=== PATIENT | female | born 1960 | race Caucasian/White ===

== ENCOUNTER 2019-05-08 12:43 | Emergency (ER) | payer OTHER ==
[2019-05-08 13:33] VITALS: BP 128/71; PULSE 63; RESP 18; TEMP 98.2
--- NOTE | 2019-05-08 14:10 | ED ---
General Adult HPI - General Chief complaint: Extremity Injury, Lower Stated complaint: foot pain Time Seen by Provider: 05/08/19 13:35 Source: patient, RN notes reviewed Mode of arrival: ambulatory Limitations: no limitations - History of Present Illness Initial comments: Patient is a pleasant 58-year-old female presenting to the emergency Department with right foot pain. Incident occurred proximate for 5 days ago. Patient wears crocs and they were wet and her foot slipped. Patient complains of discomfort of her right heel since that time. There was some redness however this has resolved. Patient notices as she walks she tends to walk up on her toes. Patient avoids walking on her heel. No history of significant injury to this area previously. - Related Data Previous Rx's Medication Instructions Recorded Ibuprofen [Motrin] 600 mg PO Q6HR PRN #20 tab 05/08/19 Allergies Allergy/AdvReac Type Severity Reaction Status Date / Time No Known Allergies Allergy Verified 05/08/19 13:32 Review of Systems ROS Statement: Those systems with pertinent positive or pertinent negative responses have been documented in the HPI. ROS Other: All systems not noted in ROS Statement are negative. Constitutional: Denies: fever Eyes: Denies: eye pain ENT: Denies: ear pain Respiratory: Denies: cough Cardiovascular: Denies: chest pain Endocrine: Denies: fatigue Gastrointestinal: Denies: abdominal pain Genitourinary: Denies: dysuria Musculoskeletal: Reports: as per HPI Skin: Denies: rash Neurological: Denies: weakness Past Medical History Past Medical History: No Reported History History of Any Multi-Drug Resistant Organisms: None Reported Past Surgical History: Section, Tonsillectomy Past Psychological History: No Psychological Hx Reported Smoking Status: Current every day smoker Past Alcohol Use History: None Reported Past Drug Use History: None Reported General Exam Limitations: no limitations General appearance: alert, in no apparent distress Head exam: Present: atraumatic Eye exam: Present: normal appearance Neck exam: Present: normal inspection. Absent: tenderness Respiratory exam: Present: normal lung sounds bilaterally Cardiovascular Exam: Present: regular rate, normal rhythm Expanded Peripheral pulses: 2+: Posterior Tibialis (R), Posterior Tibialis (L), Dorsalis Pedis (R), Dorsalis Pedis (L) GI/Abdominal exam: Present: soft. Absent: tenderness Extremities exam: Present: tenderness (Mild tenderness inferior middle right heel. No erythema.) Neurological exam: Present: alert. Absent: motor sensory deficit Psychiatric exam: Present: normal affect, normal mood Skin exam: Present: normal color. Absent: rash Course Vital Signs 05/08/19 13:30 Temperature 98.2 F Pulse Rate 63 Respiratory 18 Rate Blood Pressure 128/71 O2 Sat by Pulse 97 Oximetry Medical Decision Making - Medical Decision Making Patient reevaluated and updated. - Radiology Data Radiology results: image reviewed (X-ray of the right ankle and foot shows no acute osseous abnormality. Calcaneal spur.) Disposition Clinical Impression: Contusion of heel Disposition: HOME SELF-CARE Condition: Stable Instructions (If sedation given, give patient instructions): Foot Contusion (ED) Additional Instructions: Please follow-up with primary care physician in the next couple days for rech trace. [id number] anti-inflammatory as needed. Return for increased pain, redness or swelling, worsening symptoms or other concerns. Prescriptions: Ibuprofen [Motrin] 600 mg PO Q6HR PRN #20 tab PRN Reason: Pain Is patient prescribed a controlled substance at d/c from ED?: No Referrals: Deven Chi MD [Primary Care Provider] - 1-2 days Time of Disposition: 15:07
--- NOTE | 2019-05-08 14:24 | XR ---
EXAMINATION TYPE: XR ankle complete RT DATE OF EXAM: 05/08/2019 COMPARISON: None HISTORY: Pain TECHNIQUE: 3 view right ankle FINDINGS: Ankle mortise is intact. No acute fractures are evident. Plantar calcaneal heel spurs prese nt. IMPRESSION: 1. No acute osseous abnormality right ankle. 2. Plantar calcaneal heel spur. 3. Follow-up exam can be performed 7-10 days from acute trauma for continued pain.
--- NOTE | 2019-05-08 15:11 | XR ---
EXAMINATION TYPE: XR foot complete RT DATE OF EXAM: 05/08/2019 COMPARISON: None HISTORY: Pain twisted ankle TECHNIQUE: Right foot is examined in 3 views FINDINGS: Plantar calcaneal heel spurs present. Soft tissues are normal. No acute fractures or disloc ations are evident. Joint spaces are preserved. Follow up exams can be performed 7-10 days acute trauma for continued pain. IMPRESSION: 1. Normal 3 view right foot
== END 2019-05-08 15:33 | disposition home or self-care (01) ==
LOC: EC 12:43
DX: S90.31XA Contusion of right foot, initial encounter (principal); M77.31 Calcaneal spur, right foot; F17.200 Nicotine dependence, unspecified, uncomplicated; X50.1XXA Overexertion from prolonged static or awkward postures, initial encounter
CPT/HCPCS: 99283

== ENCOUNTER → 2021-05-01 | Outpatient (CLI) | payer OTHER ==
--- NOTE | 2021-05-01 16:29 | CONS ---
CONSULTATION DATE OF SERVICE: 05/01/2021 This 60-year-old lady has been evaluated in the sleep center for possible obstructive sleep apnea-hypopnea syndrome and other sleep problems. HISTORY OF PRESENT ILLNESS/SLEEP-WAKE EVALUATION: The patient usually goes to bed around 11 p.m. or 12 midnight. She does have problems with falling asleep and gets up in the morning around 10 a.m. No TV in bedroom. She usually sleeps on the back and side positions. She snores and has awakenings from sleep with gasping for air and possibly even stops breathing during sleep. She also sweats during the night. She wakes up from sleep up to 2 times. She turns from the back to the side and then to the back during the night. No history of hypnagogic hallucinations, sleep paralysis or cataplexy. During the day, patient may feel sleepiness. [place] Sleepiness Scale is 9. She may take one nap around 3, 5 p.m. Usually does not feel refreshed after nap. No history of vivid dreams during naps. The patient has difficulties paying attention during the day, worries about her sleep, has problems with memory, concentration, irritability and anxiety. PAST MEDICAL HISTORY: Positive for episodes of anxiety. Episodes of irritability. Problems with memory. MEDICATIONS: Cyclobenzaprine 10 mg 1-2 times per week. She previously was on trazodone but had some side effects of the medication. FAMILY HISTORY: Positive for cancer and possible sleep apnea. REVIEW OF SYSTEMS: No fevers. No double vision. No recent chest pain. No shortness of breath. No abdominal pain. No bleeding episodes. No blood in the urine. No seizure episodes. Difficulties initiating sleep, awakenings from sleep, snoring, tiredness and sleepiness during the day with episodes of naps in late afternoon. PHYSICAL EXAMINATION: GENERAL: Pleasant lady without distress. VITAL SIGNS: BP 149/84, HR 74, RR 15, height 5 feet 4 inches, weight 179, body mass index 30.7, temperature 98.8, oxygen saturation at room air 95%. HEENT: PERRLA, EOMI, evaluation of oropharynx showed tongue protrudes midline. Low position of soft palate; Mallampati III. Big wide uvula. NECK: Supple, no JVD. Thyroid is not palpable. Neck measures 14-1/2 inches in circumference. LUNGS: Clear to percussion and to auscultation. Good air exchange. No wheezing or rhonchi. HEART: S1, S2 regular. No murmurs, gallops, or rubs. ABDOMEN: Obese. EXTREMITIES: No clubbing or cyanosis. POST CLOSER: Awake, alert, and oriented X3. Cranial nerves 2 to 7 intact. There is no fasciculation or atrophy. noted. No focal deficits observed. IMPRESSION: 1. Snoring, witnessed episodes of stopped breathing during sleep, small oropharyngeal air space, low position of soft palate, Mallampati III, episodes of sleepiness; obstructive sleep apnea-hypopnea syndrome. 2. Obesity; BMI 30.7. 3. Episodes of anxiety and irritability. 4. Status post tonsillectomy. 5. Status post . 6. Menopause. PLAN: 1. Polysomnography for evaluation of patient's breathing during sleep. 2. CPAP/BiPAP titration if sleep study confirms obstructive sleep apnea-hypopnea syndrome. 3. Preferable position during sleep on the side. 4. No driving if patient feels any sleepiness. 5. I will see patient for follow up visit to explain results of testing and following plan. Thank you very much for referring this patient for consultation. Sincerely, Donavon Skaggs MD, PhD, FAASM Diplomat of [place] [employer] Sleep Medicine [employer] of [place] [employer] [facility] [place] TREY / EUGENIO: [id number] /
== END ==
LOC: SLEEP 14:34
PROVIDERS: ATTEND Internal Medicine
DX: G47.33 Obstructive sleep apnea (adult) (pediatric) (principal); E66.9 Obesity, unspecified; F41.9 Anxiety disorder, unspecified; F17.200 Nicotine dependence, unspecified, uncomplicated; Z90.89 Acquired absence of other organs; Z78.0 Asymptomatic menopausal state; Z98.891 History of uterine scar from previous surgery; Z68.30 Body mass index [BMI] 30.0-30.9, adult
CPT/HCPCS: 99211